=== PATIENT | male | born 1990 | race Caucasian/White ===

== ENCOUNTER 2017-07-13 14:45 | Emergency (ER) | payer SELFPAY ==
[2017-07-13 14:52] VITALS: RESP 16
--- NOTE | 2017-07-13 15:06 | EDPHY ---
H & P Time Seen by Provider: 07/13/17 15:03 HPI/ROS: CHIEF COMPLAINT: Left 4th digit laceration HISTORY OF PRESENT ILLNESS: 26-year-old male with up-to-date tetanus arrives via ambulance after he tripped and fell onto a sharp metal object. The object not break. No glass involvement. No foreign body sensation. No paresthesia. PHYSICAL EXAM (Prior to examination, patient consented to physical exam, hands were washed and my usual and customary physical exam procedures followed) 1) GENERAL: Well-developed, well-nourished, alert and oriented. Appears to be in no acute distress. 2) HEAD: Normocephalic 3) HEENT: sclera anicteric 4) LUNGS: Breathing comfortably. 5) SKIN: Left 4th digit palmar aspect distal phalanx and D IP joint 2.5 cm laceration, 6) MUSCULOSKELETAL: FDS function intact. FDP function: Patient either unwilling or unable to fully flex at the DIP joint 7) NEUROLOGIC: Full sensation and two-point discrimination intact Smoking Status: Never smoked Constitutional: Initial Vital Signs Temperature (C) 36.9 C 07/13/17 14:48 Heart Rate 65 07/13/17 14:48 Respiratory Rate 16 07/13/17 14:48 Blood Pressure 147/93 H 07/13/17 14:48 O2 Sat (%) 97 07/13/17 14:48 O2 Delivery Mode Room Air Allergies/Adverse Reactions: aspirin Allergy (Verified 07/13/17 14:48) Penicillins Allergy (Verified 07/13/17 14:48) Sulfa (Sulfonamide Antibiotics) Allergy (Verified 07/13/17 14:48) Home Medications: Medication Instructions Recorded Cephalexin [Keflex] 500 mg PO TID 7 Days cap 07/13/17 MDM/Departure - MDM Imaging: I viewed and interpreted images myself Procedures: Procedure: Laceration repair. I explained the indications, risks and benefits for both laceration repair and anesthetic administration. Verbal consent was obtained from the patient . The laceration on the left 4th digit was anesthetized using 0.5% bupivicaine without epinephrine digital nerve block. After anesthetic administered the patient was observed for a period of time and had no apparent adverse effects. The wound was cleaned, prepped, draped in normal sterile fashion and explored to its base. No foreign body seen, no foreign bodies palpated. There were no deep structures involved. No tendon injury was identified. The wound was repaired with 7 simple interrupted 5 O Ethilon sutures . The wound repair was simple. The procedure was performed by myself. Patient has been informed that scarring will occur, although efforts have been made to minimize this. ED Course/Re-evaluation: Care of patient under supervision of secondary supervising physician Dr Mcclure . Patient was re-evaluated with serial exams. Is not clear whether he was unwilling or unable to flex at the PIP joint and whether FDP dysfunction is present. I recommended follow-up with Hand surgery. He has been splinted, sutured. Usual and customary wound precautions instructions provided. Care of patient under supervision of secondary supervising physician Dr Mcclure - Depart Disposition: Home, Routine, Self-Care Clinical Impression: Finger laceration Qualifiers: Encounter type: initial encounter Finger: ring finger Damage to nail status: without damage Foreign body presence: without foreign body Laterality: left Qualified Code(s): S61.215A - Laceration without foreign body of left ring finger without damage to nail, initial encounter Condition: Good Instructions: Laceration (ED) Additional Instructions: Return to the ER if you develop redness, swelling, discharge, warmth to the wound, red streaks going up your arm, or any other symptoms that concern you. Prescriptions: Cephalexin [Keflex] 500 mg PO TID 7 Days cap Referrals: Return, to the ER in 10 days for suture removal [Other] - As per Instructions Hardeep Weathers MD [Medical Doctor] - 2-3 days, call for appt. (Dr. Weathers is a hand surgeon that I recommend you follow up with)
[2017-07-13] MEDS ORDERED: CEPHALEXIN 500 MG CAP PO ONE (15:31)
[2017-07-13 16:22] VITALS: BP 126/96; PULSE 73; TEMP 98.6; O2SAT 95
== END 2017-07-13 16:19 | disposition home or self-care (01) ==
PROC: 0HQGXZZ Repair Left Hand Skin, External Approach (ICD-10-PCS; principal; 2017-07-13)
DX: S61.215A Laceration without foreign body of left ring finger without damage to nail, initial encounter (principal); W01.119A Fall on same level from slipping, tripping and stumbling with subsequent striking against unspecified sharp object, initial encounter; Y99.8 Other external cause status

== ENCOUNTER 2017-07-30 17:53 | Emergency (ER) | payer SELFPAY ==
[2017-07-30 18:04] VITALS: TEMP 99
--- NOTE | 2017-07-30 18:05 | EDPHY ---
H & P Stated Complaint: ? multoiple seizure like activity over last week HPI/ROS: CHIEF COMPLAINT: "Seizures" HISTORY OF PRESENT ILLNESS: The patient is a 26 y/o male complaining of experiencing seizures for the past week. He has no known history of seizure disorder. He describes episodes that begin with a "severe feeling of vicente vu". After the vicnete vu begins, he has a tingling sensation that starts on his head and radiates to the rest of his body ("as if someone cracked an egg on his head and the egg dripped down his body"). During these episodes he is unable to understand what people are saying to him. When he "wakes up" from the seizure he is confused and is unsure of what he is doing and feels "displaced". Yesterday was the first time he fell and hit his head, with one co-worker visualizing this fall. No limb movement noted. This morning he had another episode with identical symptoms. He has bitten the inside of his mouth during these episodes. He also experiences muscle tightness 20-30 minutes after onset of symptoms. He believes his symptoms are worsening and occurring once or twice a day. Denies headaches, no change in sleep or dietary habits. He smokes "alot" of marijuana, no alcohol or illicit drug use. He reports a brother with an apparent seizure disorder and two other more distant family members with seizure disorders. REVIEW OF SYSTEMS: A ten point review of systems was performed and is negative with the exception of the its mentioned in the HPI. Past medical history: 1. Pre-Granados's esophagus 2. Pancreatitis 3. Peptic ulcers Past surgical history: 1. Multiple endoscopies. Family history: Cousin has epilepsy, brother has epilepsy but is not on medication Social history: Friend at bedside, lives in [place], single, marijuana use General Appearance: Alert. Vital signs reviewed. BP 122/78. Eyes: Pupils equal and round, no conjunctival injection, no discharge. Anicteric. ENT, Mouth: Injury to right side of cheek. Mucous membranes are moist, no oropharyngeal erythema or edema. Neck: No lymphadenopathy, supple. Respiratory: Lungs are clear to auscultation; no wheezes, rales, or rhonchi. Cardiovascular: Regular rate and rhythm; no murmur, rub, or gallop. Gastrointestinal: Abdomen is soft and nontender, no masses or organomegaly, bowel sounds normal. Skin: Warm and dry, no rashes on exposed skin, normal color. Back: Nontender to palpation over the thoracolumbar spine. No CVAT. Extremities: No lower extremity edema, no calf tenderness or swelling. Neurological: Alert and oriented. Moving all four extremities easily and equally. Cranial nerves II through XII are examined and are intact (visual acuity not tested). Strength is 5 over 5 bilaterally with testing of all major motor groups. Sensation is intact to light touch over all 4 extremities. Deep tendon reflexes are 2+ in the biceps and knees bilaterally. Gait is normal. [id number] is performed accurately. Psychiatric: Normal affect. - Personal History Current Tetanus/Diphtheria Vaccine: Yes - Medical/Surgical History Hx Asthma: No Hx Chronic Respiratory Disease: No Hx Diabetes: No Hx Cardiac Disease: No Hx Renal Disease: No Hx Cirrhosis: No Hx Alcoholism: No Hx HIV/AIDS: No Hx Splenectomy or Spleen Trauma: No Other PMH: pre-barrates esophagus, pancreatitis, peptic ulcers - Social History Smoking Status: Never smoked Constitutional: Initial Vital Signs Temperature (C) 37.2 C 07/30/17 18:02 Heart Rate 82 07/30/17 18:02 Respiratory Rate 16 07/30/17 18:02 Blood Pressure 122/78 H 07/30/17 18:02 O2 Sat (%) 98 07/30/17 18:02 O2 Delivery Mode Room Air Allergies/Adverse Reactions: aspirin Allergy (Verified 07/30/17 18:01) Penicillins Allergy (Verified 07/30/17 18:01) Sulfa (Sulfonamide Antibiotics) Allergy (Verified 07/30/17 18:01) Home Medications: Medication Instructions Recorded Daily Thc 07/30/17 levETIRAcetam [Keppra 500 mg (*)] 500 mg PO BID #60 tab 07/30/17 Medical Decision Making - Diagnostics Imaging: Discussed imaging studies w/ call center team leader Radiologist, I viewed and interpreted images myself ED Course/Re-evaluation: The patient is a 26 y/o male presenting after experiencing what he thinks might be seizures for the past week. 1903: Spoke with radiologist, patient has a normal head CT. 1949: Consulted with Dr. Segundo, neurologist, regarding the patient's symptoms. Patient most likely has temporal lobe seizures. Patient will be prescribed Keppra; his first dose will be given in the ED. 195: Reassessed patient and discussed imaging findings. I have advised him to follow up with Dr. Segundo -- to call tomorrow to schedule an appointment. Return precautions provided; patient is comfortable with this plan. He is advised that he should not drive or engage in other potentially dangerous activities. Differential Diagnosis: Seizure including but not limited to electrolyte abnormality, alcohol withdrawal , medication noncompliance, head injury, and breakthrough seizure. - Data Points Laboratory Results: Laboratory Results 07/30/17 18:40 07/30/17 18:40 Medications Given: Discontinued Medications Levetiracetam (Keppra) 500 mg PO EDNOW ONE Stop: 07/30/17 19:53 Last Admin: 07/30/17 19:57 Dose: 500 mg Departure - Departure Disposition: Home, Routine, Self-Care Clinical Impression: Seizure Condition: Good Instructions: Epilepsy (ED) Additional Instructions: Take Keppra as prescribed, twice daily. Do not drive until cleared to do so by a neurologist. Follow up with Dr. Segundo, neurologist. You will need to call his office tomorrow. Let the office staff know that you were seen in the emergency department and diagnosed with new onset seizures. Let them know that the emergency department physician spoke with Dr. Segundo. If you have difficulty arranging an appointment you can call us. Return to the ED for severe headache, weakness or numbness on one side of your body, vision changes, or other worsening of condition. Referrals: Roshan Segundo DO [Medical Doctor] - As per Instructions [facility],. [Clinic] - As per Instructions Stand Alone Forms: Work Excuse Prescriptions: levETIRAcetam [Keppra 500 mg (*)] 500 mg PO BID #60 tab Report Scribed for: Iram Garner Report Scribed by: Cheri Patterson Date of Report: 07/30/17 Time of Report: 18:33 Physician Review and Approval Statement: 07/30/17 18:05 Portions of this note were transcribed by the medical certification specialist. I, Dr. Iram Garner, personally performed the history, physical exam, and medical decision- making; and confirmed the accuracy of the information in the transcribed note.
[2017-07-30 18:46] LABS: PLATELET COUNT 244 10^3/uL (150-400)
[2017-07-30 19:19] VITALS: RESP 20
[2017-07-30] MEDS ORDERED: levETIRAcetam 500 MG TAB PO ONE (19:52)
[2017-07-30 20:11] VITALS: BP 130/85; PULSE 83; O2SAT 96
== END 2017-07-30 20:11 | disposition home or self-care (01) ==
DX: R56.9 Unspecified convulsions (principal)

== ENCOUNTER 2018-03-23 23:51 | Emergency (ER) | payer SELFPAY ==
[2018-03-23] MEDS ORDERED: CEPHALEXIN 500 MG CAP PO ONE (23:56)
[2018-03-23] MEDS ORDERED: CEPHALEXIN 500MG PREPACK#4 BTL TAKEHOME ONE (23:56)
--- NOTE | 2018-03-24 00:04 | EDPHY ---
H & P Source: Patient, EMS - Medical/Surgical History Hx Asthma: No Hx Chronic Respiratory Disease: No Hx Diabetes: No Hx Cardiac Disease: No Hx Renal Disease: No Hx Cirrhosis: No Hx Alcoholism: No Hx HIV/AIDS: No Hx Splenectomy or Spleen Trauma: No Other PMH: pre-barrates esophagus, pancreatitis, peptic ulcers - Social History Smoking Status: Never smoked Time Seen by Provider: 03/23/18 23:57 HPI/ROS: HPI CHIEF COMPLAINT: Left arm laceration HISTORY OF PRESENT ILLNESS: 27-year-old male, presents emergency room with a left forearm laceration. Patient states he was cleaning his fingernails and getting the dirt from underneath them with a pocket knife when he was walking to the house doing this the same time he tripped over some object on the ground stand made him fall and the knife cut his left forearm. He sustained a 7 cm horizontally oriented left forearm laceration without any significant tendon involvement. Patient reports to me his tetanus shot is up-to-date. He also additionally reports that this was not intentional. He states this was accidental. Denies any SI or HI. Past Medical History: Epilepsy not medicated, history of ulcers, history of chronic pancreatitis Past Surgical History: No recent surgery Social History: Denies drugs, except for marijuana, denies alcohol or tobacco. Homeless. Currently staying at his buddies. Family History: Noncontributory ROS REVIEW OF SYSTEMS: 10 Systems were reviewed and negative with the exception of the elements mentioned in the history of present illness. Exam Constitutional nontoxic. Comma triage nursing summary reviewed, vital signs reviewed, awake/alert. Eyes normal conjunctivae and sclera, EOMI, PERRLA. HENT normal inspection, atraumatic, moist mucus membranes, no epistaxis, neck supple/ no meningismus, no raccoon eyes. Respiratory clear to auscultation bilaterally, normal breath sounds, no respiratory distress, no wheezing. Cardiovascular rate normal, regular rhythm, no murmur, no edema, distal pulses normal. Gastrointestinal soft, non-tender, no rebound, no guarding, normal bowel sounds, no distension, no pulsatile mass. Genitourinary no CVA tenderness. Musculoskeletal no midline vertebral tenderness, full range of motion, no calf swelling, no tenderness of extremities, no meningismus, good pulses, neurovascularly intact. Skin left forearm: Horizontal Oriented 7CM laceration palmar side, mid forearm. Otherwise neurovascular intact, no arterial injury, no tendon injury, full rom of right hand, good senior dentist strength, good cap refill. Good radial pulse. Neurologic awake, alert and oriented x 3, AAOx3, moves all 4 extremities equally, motor intact, sensory intact, CN II-XII intact, normal cerebellar, normal vision, normal speech. Psychiatric normal mood/affect. Heme/Lymph/Immune no lymphadenopathy. Differential Diagnosis: Includes but is not limited to in a particular order left forearm laceration, soft tissue injury, tendon injury, arterial injury, muscle injury Medical Decision Making: Plan for this patient will copiously irrigating clean his wound. Will evaluate for tendon laceration, additionally his tetanus shot is up-to-date. Additionally will start on antibiotics as he was cleaning dirt from underneath his fingernails. And then subsequently cut his forearm. There does not appear to be gross contamination in the wound. Will start on Keflex here in emergency room 1st dose given. Take-home pack. Patient understands to watch closely for signs of infection given this will be closed. If he has any redness, drainage, pus, swelling, fever, increasing pain he needs return emergency room. He understands this. Re-evaluation: (Christopher Clay) Constitutional: Initial Vital Signs Temperature (C) 36.6 C 03/23/18 23:57 Heart Rate 78 03/23/18 23:57 Respiratory Rate 18 03/23/18 23:57 Blood Pressure 156/78 H 03/23/18 23:57 O2 Sat (%) 97 03/23/18 23:57 O2 Delivery Mode Room Air Allergies/Adverse Reactions: aspirin Allergy (Verified 03/23/18 23:57) Penicillins Allergy (Verified 03/23/18 23:57) Sulfa (Sulfonamide Antibiotics) Allergy (Verified 03/23/18 23:57) Home Medications: Medication Instructions Recorded Daily Thc 07/30/17 levETIRAcetam [Keppra 500 mg (*)] 500 mg PO BID #60 tab 07/30/17 Cephalexin [Keflex] 500 mg PO Q6H #28 cap 03/24/18 Medical Decision Making Procedures: Procedure: Laceration repair. I was requested by Dr. Clay to perform wound closure I explained the indications, risks and benefits for both laceration repair and anesthetic administration. Verbal consent was obtained from the patient . The laceration on the left volar forearm was anesthetized using 0.5% bupivicaine with epinephrine . After anesthetic administered the patient was observed for a period of time and had no apparent adverse effects. The wound was cleaned, prepped, draped in normal sterile fashion and explored to its base. No foreign body seen, no foreign bodies palpated. A fascial defect was identified. A partial tendon avulsion was noted. Fascial defect closed with 6 simple interrupted 4 0 Vicryl sutures. Skin closed with a running suture of 4 0 Prolene. The wound repair was complex. The procedure was performed by myself. Patient has been informed that scarring will occur, although efforts have been made to minimize this. (Clair Balbuena) - Data Points Medications Given: Discontinued Medications Cephalexin (Keflex 500 Mg Prepack#4) 1 btl TAKEHOME EDNOW ONE PRN Reason: Protocol Stop: 03/23/18 23:57 Last Admin: 03/24/18 00:26 Dose: 1 btl Cephalexin HCl (Keflex) 500 mg PO EDNOW ONE PRN Reason: Protocol Stop: 03/23/18 23:57 Last Admin: 03/24/18 00:26 Dose: 500 mg Departure - Departure Disposition: Home, Routine, Self-Care Clinical Impression: Laceration Arm laceration Qualifiers: Encounter type: initial encounter Laterality: left Qualified Code(s): S41.112A - Laceration without foreign body of left upper arm, initial encounter Condition: Good Instructions: Cephalexin (By mouth), Laceration (ED) Additional Instructions: 1. Keep your wound clean, dry, intact. 2. Antibiotics as prescribed. 3. Please watch for infection this includes redness, drainage, swelling, pus, increasing pain. 4. If you see any signs of infection return emergency room immediately. 5. Complete her entire course of antibiotics. 6. Your sutures need to be removed in 12-14 days. Referrals: Tito Link MD [Medical Doctor] - As per Instructions [facility],. [Clinic] - As per Instructions Patient,NotPresent [Unknown] - As per Instructions Prescriptions: Cephalexin [Keflex] 500 mg PO Q6H #28 cap
[2018-03-24 01:08] VITALS: BP 134/74
== END 2018-03-24 01:07 | disposition home or self-care (01) ==
LOC: EDUNIT#
PROC: 0JQH3ZZ Repair Left Lower Arm Subcutaneous Tissue and Fascia, Percutaneous Approach (ICD-10-PCS; principal; 2018-03-23)
DX: S51.812A Laceration without foreign body of left forearm, initial encounter (principal); W26.0XXA Contact with knife, initial encounter; Y92.018 Other place in single-family (private) house as the place of occurrence of the external cause

== ENCOUNTER 2018-08-22 10:26 | Emergency (ER) | payer MEDICAID ==
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
[2018-08-22] MEDS ORDERED: levETIRAcetam 500 MG TAB PO ONE (11:00)
[2018-08-22 11:58] VITALS: BP 129/86
== END 2018-08-22 11:59 | disposition home or self-care (01) ==
DX: G40.909 Epilepsy, unspecified, not intractable, without status epilepticus (principal)

== ENCOUNTER 2018-11-17 16:00 | Emergency (ER) | payer MEDICAID, OTHER ==
--- NOTE | 2018-11-17 17:05 | EDPHY ---
H & P Stated Complaint: requests note to return TO work --from seizure today Source: Patient, Old records Exam Limitations: No limitations - Medical/Surgical History Hx Asthma: No Hx Chronic Respiratory Disease: No Hx Diabetes: No Hx Cardiac Disease: No Hx Renal Disease: No Hx Cirrhosis: No Hx Alcoholism: No Hx HIV/AIDS: No Hx Splenectomy or Spleen Trauma: No Other PMH: chronic pancreatitis, peptic ulcers, seizures, pre barretts esophagus - Social History Smoking Status: Current every day smoker Time Seen by Provider: 11/17/18 16:55 HPI/ROS: HPI: This is a 28-year-old male who presents with Chief Complaint: requests note to return TO work --from seizure today Location: body Quality: Seizure Duration: Lasting less than 1 min Signs and Symptoms: no fever, no nausea, no vomiting, no photophobia, no noise sensitivity, no neck stiffness, no ear pain, no tinnitus, no nasal congestion, no sinus pressure, no weakness, no radiation, no aura Timing: Acute on chronic Severity: Mild Context: Patient was seen in July in this emergency room with his 1st onset of seizure and presents today with request for a work no and paperwork to be completed to allow him to return to work at a local [employer] shop. Patient reports that his seizure activity is not grand mal type but results and "my body feeling funny and me staring straight ahead for a few seconds." He reports that he can feel "the seizure coming on." He initially was started on Keppra once daily but only took it for 1 week because it "started to make him feel funny. He reports that his seizure today only lasted a few seconds. Denies tongue biting or urinary/bowel incontinence. He has an appointment on Monday with Neurology. Modifying Factors: None Comment: ROS: A comprehensive 10 system review of systems is otherwise negative aside from elements mentioned in the history of present illness. MEDICAL/SURGICAL/SOCIAL HISTORY: Medical history: chronic pancreatitis, peptic ulcers, seizures, pre-Granados esophagus Surgical history: Denies Social history: Current every day smoker. Marijuana user. Employed. Family history noncontributory. CONSTITUTIONAL: Well-developed, well-nourished, young adult white male, significant other and child at bedside, awake and alert, no obvious distress HEENT: Atraumatic and normocephalic, PERRL, EOMI. Nares patent; no rhinorrhea; no nasal mucosal edema. Tympanic membranes clear. Oropharynx clear, no exudate and moist pink mucosa. Airway patent. No lymphadenopathy. No meningismus. Cardiovascular: Normal S1/S2, regular rate, regular rhythm, without murmur rub or gallop. PULMONARY/CHEST: Symmetrical and nontender. Clear to auscultation bilaterally. Good air movement. No accessory muscle usage. ABDOMEN: Soft, nondistended, nontender, no rebound, no guarding, no peritoneal signs, no masses or organomegaly. No CVAT. EXTREMITIES: 2/2 pulses, strength 5/5, no deformities, no clubbing, no cyanosis or edema. NEUROLOGICAL: no focal neuro deficits. GCS 15. Cranial nerves 2-12 grossly intact. Speech normal. SKIN: Warm and dry, no erythema. no rash. Good capillary refill. (Chanel Mclaughlin) Constitutional: Initial Vital Signs Temperature (C) 36.7 C 11/17/18 16:21 Heart Rate 87 11/17/18 16:21 Respiratory Rate 16 11/17/18 16:21 Blood Pressure 141/82 H 11/17/18 16:21 O2 Sat (%) 95 11/17/18 16:21 O2 Delivery Mode Room Air Allergies/Adverse Reactions: aspirin Allergy (Verified 03/23/18 23:57) Penicillins Allergy (Verified 03/23/18 23:57) Sulfa (Sulfonamide Antibiotics) Allergy (Verified 03/23/18 23:57) Home Medications: Medication Instructions Recorded levETIRAcetam [Keppra 500 mg (*)] 500 mg PO BID #30 tab 08/22/18 Medical Decision Making ED Course/Re-evaluation: Vital signs reviewed and stable upon arrival. No systemic signs and patient appears nontoxic. He is requesting me to fill out a work note for him to work this weekend I reviewed the chart and patient has a follow-up appointment with Neurology on Monday. Paperwork completed per request. This patient was seen under the supervision of my secondary supervising physician. I evaluated and cared for this patient with attending. (Chanel Mclaughlin) The patient was evaluated and managed by the physician office clerk assistant. I have reviewed this chart and I agree with the findings and plan of care as documented , as indicated by my signature. I am the secondary supervising physician. ( Iram Garner) Differential Diagnosis: Seizure including but not limited to electrolyte abnormality, alcohol withdrawal , medication noncompliance, head injury, and breakthrough seizure. (Chanel Mclaughlin) Departure - Departure Disposition: Home, Routine, Self-Care Clinical Impression: Seizure disorder Condition: Good Instructions: Epilepsy (ED) Additional Instructions: Please keep Neurology appointment on Monday. When You feel a seizure coming on, please sit down until the feeling passes. Return to the ER immediately if you have progressive headaches, neurologic deficits, gait abnormality, visual disturbance, slurred speech, or any other symptom that concerns you. Referrals: [facility] [Provider Group] - As per Instructions
[2018-11-17 17:38] VITALS: BP 131/78
== END 2018-11-17 17:35 | disposition home or self-care (01) ==
DX: G40.909 Epilepsy, unspecified, not intractable, without status epilepticus (principal)